=== PATIENT | female | born 1970 | race Caucasian/White ===

== ENCOUNTER 2022-07-11 17:12 | Emergency (ER) | payer BC ==
[~2022-07-11] VITALS: Ht 177.8 cm; Wt 83.9 kg
== END 2022-07-11 20:05 | disposition home or self-care (01) ==
LOC: ER 17:12
DX: S01.91XA Laceration without foreign body of unspecified part of head, initial encounter (principal); W05.1XXA Fall from non-moving nonmotorized scooter, initial encounter; Y93.I9 Activity, other involving external motion; Y92.9 Unspecified place or not applicable; Y99.9 Unspecified external cause status